=== PATIENT | female | born 1950 | race Caucasian/White ===

== ENCOUNTER 2019-03-28 09:01 | Outpatient (CLI) | payer MEDICARE, OTHER ==
[~2019-03-28] VITALS: Ht 157 cm; Wt 102.2 kg
[~2019-03-28 09:01] MED LIST: ALIS1TAB6 PO; CALC-80 PO; LEVO200T30 PO; PANT20TA2 PO; PGLT30T PO
[2019-03-28] MEDS ORDERED: LISI2.5T PO (09:15)
[2019-03-28] MEDS ORDERED: GABA800T10 PO (09:15)
[2019-03-28] MEDS ORDERED: LEVO150T6 PO (09:15)
[2019-03-28] MEDS ORDERED: VENL150C PO (09:15)
[2019-03-28 09:18] VITALS: BP 113/69
== END 2019-03-28 12:30 | disposition home or self-care (01) ==
LOC: PREOP 09:01
PROVIDERS: ATTEND Podiatrist Foot & Ankle Surgery
DX: Z01.818 Encounter for other preprocedural examination (principal)
CPT/HCPCS: 87081

== ENCOUNTER 2019-07-17 05:33 | Outpatient (CLI) | payer MEDICARE, OTHER ==
[~2019-07-17] VITALS: Ht 157 cm; Wt 102.2 kg
[~2019-07-17 05:33] MED LIST changes: +ACHD5005 PO; +CEPH500C PO; +GABA800T10 PO; +LEVO150T6 PO; +LISI2.5T PO; +VENL150C PO
[2019-07-17] MEDS ORDERED: LEVO175T5 PO (10:06)
== END 2019-07-17 10:22 | disposition home or self-care (01) ==
LOC: PREOP 05:33
PROVIDERS: ATTEND Podiatrist Foot & Ankle Surgery
DX: Z01.818 Encounter for other preprocedural examination (principal)

== ENCOUNTER 2019-07-24 07:56 | Day surgery (SDC) | payer MEDICARE, OTHER ==
[~2019-07-24] VITALS: Ht 157 cm; Wt 102.2 kg
[2019-07-24] VITALS (11 sets, daily range): BP systolic 128–165; BP diastolic 63–91
[~2019-07-24 07:56] MED LIST changes: +LEVO175T5 PO
[2019-07-24] MEDS: LACTATED RINGERS 1,000 ML IV PRN ×2 (08:27→09:49)
[2019-07-24] MEDS ORDERED: CATHETER FLUSH 10 ML SYR IV PRN (08:30)
[2019-07-24] MEDS ORDERED: ceFAZolin INJECTION 1,000 MG in WATER (STERILE) FOR INJECTION 10 ML IV ONE (08:30)
[2019-07-24] MEDS ORDERED: LIDOCAINE PF 2% 5 ML (XYLOCAINE) VIAL ONE (08:36)
[2019-07-24] MEDS ORDERED: proPOfol 200 MG/20 ML (DIPRIVAN) VIAL IV ONE (08:36)
[2019-07-24] MEDS ORDERED: MIDAZOLAM 2 MG/2 ML (VERSED) VIAL ONE (08:38)
[2019-07-24] MEDS ORDERED: fentaNYL INJECTION 100 MCG/2 ML AMP ONE (08:38)
[2019-07-24] MEDS ORDERED: SEVOFLURANE (ULTANE) 15 ML INHAL SOLN ONE ×9 (08:42→11:44)
--- NOTE | 2019-07-24 08:56 | Progress Note-Pre Operative ---
Pre-Operative Progress Note H&P Reviewed The H&P was reviewed, patient examined and no changes noted. Date Seen by Provider: Jul 24, 2019 Time Seen by Provider: 08:55 Date H&P Reviewed: Jul 24, 2019 Time H&P Reviewed: 08:55 Pre-Operative Diagnosis: Hallux Valgus, Hammertoe 2, 3, Hypertrophic 2nd metatarsal, left. HT 3 rt EVITA COBURN DPM Jul 24, 2019 08:56
[2019-07-24] MEDS ORDERED: BUPIVACAINE 0.5% 30 ML (SENSORCAINE) VIAL ONE (09:25)
[2019-07-24] MEDS ORDERED: DEXAMETHASONE 10 MG/ML (DECADRON) 1 ML VIAL ONE ×2 (11:32→11:46)
[2019-07-24] MEDS ORDERED: ONDANSETRON 4 MG/2 ML (SDV) Z0FRAN ONE (11:44)
[2019-07-24] MEDS ORDERED: LACTATED RINGERS 1,000 ML IV SCH (11:59)
--- NOTE | 2019-07-24 11:59 | Progress Note-Post Operative ---
Post-Operative Progess Note Surgeon (s)/Pot Runner (s) Surgeon EVITA COBURN DPM Pot Runner: none Pre-Operative Diagnosis Hallux Valgus, Hammertoe 2, 3, Hypertrophic 2nd metatarsal, left. HT 3 rt Post-Operative Diagnosis Same Procedure & Operative Findings Date of Procedure 07/24/19 Procedure Performed/Findings Patrice-Derrell bunionectomy, 2nd metatarsal osteotomy, reduction of hammertoes 2, 3, left foot. Flexor Tendon release 3rd toe, right foot. Anesthesia Type General Estimated Blood Loss Estimated blood loss (mL): Minimal Specimens/Packing Specimens Removed none EVITA COBURN DPM Jul 24, 2019 11:59
[2019-07-24] MEDS ORDERED: HYDROcodone/APAP 5 MG/325 MG (LORTAB) TAB PO PRN (12:00)
[2019-07-24] MEDS ORDERED: ACHD5005 PO (12:04)
[2019-07-24] MEDS ORDERED: CEPH500C PO (12:04)
--- NOTE | 2019-07-24 12:50 | Diagnostic Imaging Report ---
INDICATION: Osteotomy. FINDINGS: A single image was performed. Two seconds of fluoroscopy was utilized. There are post surgical changes in the 1st and 2nd metatarsals. IMPRESSION: Intraoperative fluoroscopy as described. Dictated by: Dictated on workstation # [id number]
--- NOTE | 2019-07-24 13:00 | Physical Therapy Progress Note ---
Therapy Progress Note PT in to consult with family on plan and patient equipment needs. Patient had surgery, right foot, March of last year. Patient has established equipment and family reports she will sit on 4WW and maneuver in home without difficulty. Patient is PWB left foot with surgical shoe. Family declined PT due to patient prior status and surgery history. No PT indicated. YENNIFER MCGEE PT Jul 24, 2019 13:00
--- NOTE | 2019-07-24 13:45 | Anesthesia-General Post-Op ---
General Patient Condition Mental Status/LOC: Same as Preop Cardiovascular: Satisfactory Nausea/Vomiting: Absent Respiratory: Satisfactory Pain: Controlled Complications: Absent Post Op Complications Complications None Follow Up Care/Instructions Patient Instructions None needed. Anesthesia/Patient Condition Patient Condition Patient is doing well, no complaints, stable vital signs, no apparent adverse anesthesia problems. No complications reported per nursing. DANIELLE MON CRNA Jul 24, 2019 13:45
--- NOTE | 2019-07-24 14:32 | Diagnostic Imaging Report ---
INDICATION: Postsurgical change. FINDINGS: There appear to be postsurgical changes of bunionectomy in the right foot. There is also a pin transfixing a hammertoe of the third toe. There are otherwise mild degenerative changes. In the left foot, there are pins in the second and third toes. There has also been a bunionectomy. There is a screw in the distal second metatarsal as well. IMPRESSION: Postsurgical changes in the feet bilaterally as described. Degenerative changes in both feet. Dictated by: Dictated on workstation # [id number]
--- NOTE | 2019-07-24 19:54 | OPERATIVE REPORT ---
DATE OF SERVICE: 07/24/2019 SURGEON: Dori Laboy DPM. PREOPERATIVE DIAGNOSES: 1. Hallux abductovalgus metatarsal primus varus, left. 2. Hammer digit syndrome, second and third digits, left foot. 3. Hypertrophic left second metatarsal head. 4. Hammer digit syndrome, right third toe. POSTOPERATIVE DIAGNOSES: 1. Hallux abductovalgus metatarsal primus varus, left. 2. Hammer digit syndrome, second and third digits, left foot. 3. Hypertrophic left second metatarsal head. 4. Hammer digit syndrome, right third toe. PROCEDURE: 1. Modified Patrice-Derrell bunionectomy, left foot. 2. Second metatarsal osteotomy, left foot. 3. Reduction of hammertoe, left second and third digits. 4. Flexor tendon release, right third toe. WOUND CLASS: Clean. ANESTHESIA: General. HEMOSTASIS: Pneumatic thigh tourniquet 300 mmHg on the left. INDICATIONS: This 68-year-old female presents complaining of painful left foot associated with the bunion and hammertoes. She is also complaining about a right third toe that is underlapping the second digit. Conservative therapy is met with unsatisfactory results and the patient is agreeable to surgical intervention after risks and complications were discussed at length. No guarantees were extended to the patient and she is willing to proceed. DESCRIPTION OF PROCEDURE: The patient was brought back to the operating table, placed in secure supine position. Appropriate timeout was performed. General anesthetic was then induced. A pneumatic thigh tourniquet was placed over the thigh bilaterally. Left foot was then anesthetized utilizing a local injection to the first, second and third rays utilizing 10 mL of 0.5% Marcaine plain. The feet were then prepped and draped in normal sterile manner. The left lower extremity was elevated, allowed to exsanguinate after which the tourniquet was inflated to 300 mmHg. Attention was then directed to the dorsal aspect of the left first metatarsophalangeal joint where a 6 cm longitudinal linear incision was created. The incision was deepened in the same plane with great care to identify and retract all vital neurovascular structures. Only the necessary blood vessels were cauterized as encountered. The incision was deepened down to the capsular tissue where a longitudinal capsulotomy was performed. This exposed the hypertrophic medial eminence to the first metatarsal head and the dorsal eminence to the first metatarsal head, which was resected utilizing power sagittal saw. Next, a Chevron-type osteotomy with Rosalie Martinez type modification was performed. This allowed for a longer angled plantar arm with a vertical dorsal portion of the osteotomy. This allowed the capital fragment to translocate laterally and was also able to correct the proximal articular set angle. The osteotomy was corrected and fixated utilizing a 0.062 threaded K-wire driven from dorsal proximal to plantar distal across the osteotomy with great care not to penetrate the articular cartilage. The K-wire was cut flush with the dorsal aspect of the first metatarsal. The head of the first metatarsal was further contoured and smoothed with a power bur. The wound was flushed once again. Attention was then directed to the proximal phalanx of the left hallux where a subperiosteal dissection was carried out to the diaphysis. Some of the previous monofilament wire was removed from the distal portion of the proximal phalanx. Next, an Derrell type procedure was performed. The proximal diaphysis was utilized for the transverse osteotomy. A wedge of bone was resected with the base medial and the lateral cortices held intact. The osteotomy was closed once the wedge was resected reducing the lateral deviation of the left hallux. Two agricultural aircraft pilot holes were created at the dorsal medial aspect of the osteotomy after which a 28-gauge monofilament wire was passed through the agricultural aircraft pilot hole securing the osteotomy in a closed position. Excellent bony apposition and fixation was appreciated at this time. The wound was flushed with copious amounts of normal saline and closure was then performed in layers for the first ray. Deep closure was performed with 3-0 Vicryl, superficial with 4-0 Vicryl, skin closure with 4-0 Prolene in a horizontal mattress type stitch. It should also be noted that a lateral release was performed prior to closure of a left bunionectomy. This included a release of the conjoint tendon of the adductor hallucis, a lateral capsulorrhaphy and release of the fibular sesamoidal ligament. Attention was then directed to the dorsal aspect of the second ray where an incision was created from the surgical neck of the second metatarsal to the distal interphalangeal joint. The incision was deepened in the same plane with great care to identify and retract all vital neurovascular structures, only necessary blood vessels were cauterized as encountered. The incision was deepened down to the extensor tendon where a Z slide lengthening was performed overlying the proximal phalanx. The extensor tendon was reflected proximally and extensor driscoll released. A dorsal capsulorrhaphy was performed. This exposed the hypertrophic head of the second metatarsal. Next, an oblique osteotomy was performed from dorsal to plantar. The osteotomy was oriented from distal medial to proximal lateral allowing the capital fragment to translocate laterally and proximally. It was fixated in its corrected position with a 2.0 snap-off screw of 14 mm of length driven from distal lateral to proximal medial, perpendicular to the osteotomy. Excellent bony apposition and fixation was appreciated at this time. Attention was then directed to the dorsal aspect of the left third digit, where an incision was created from the metatarsophalangeal joint to the distal interphalangeal joint. The incision was deepened in the same plane with great care to identify and retract all vital neurovascular structures. The incision was deepened down to the extensor tendon where a Z slide lengthening was performed. The extensor driscoll was released overlying the metatarsophalangeal joint. A dorsal capsulorrhaphy to the metatarsophalangeal joint was performed allowing the proximal phalanx to come down into more rectus alignment. The same procedure from here on out was performed on the 2nd and 3rd digit for the arthrodesis of the proximal interphalangeal joint, which included the following: The head of the proximal phalanx was fashioned into a peg utilizing a power bur power sagittal saw and power bur. Next, a power bur was utilized to create a hole in the base of the middle phalanx. This was for the peg-in-hole type arthrodesis. Next, a 0.054 K-wire was driven down the toe securing the arthrodesis site to the second and third digits in rectus alignment. The excess K wire was cut and a protective ball placed over the end of the wires. The wounds were flushed with copious amounts of normal saline throughout the procedure. Closure was then performed to the second and third rays utilizing 3-0 Vicryl for deep closure, 4-0 Vicryl for superficial closure and skin closure was performed with 4-0 Prolene in a horizontal mattress type stitch. Postoperative injection consisted of 10 mL of 0.5% Marcaine injected a local infusion to the surgical sites. Postoperative dressing consisted of Betadine soaked Adaptic, sterile 4 x 4, sterile Kerlix. The tourniquet was released noting appropriate cap refill time to all digits of the left foot. Attention was then directed to the right third digit where a flexible contracture was noted at the distal interphalangeal joint. Utilizing a #11 blade, a stab incision was created to the plantar aspect of the right third digit. The tip of the blade was palpated at the flexor tendons and the distal phalanx was extended dorsally where once the flexor tendon was released, a more rectus alignment of the distal phalanx was appreciated. The wound was flushed with copious amounts of normal saline. Postoperative injection consisted of 4 mL of 0.5% Marcaine injected a local infusion to the right third digit. Postoperative dressing consisted of Betadine soaked Adaptic, sterile 4 x 4s prior to closure; however, a 0.045 K-wire was driven down the digit holding the digit in rectus alignment. A protective ball was placed over the end of the wire. Betadine soaked Adaptic was also placed over the end of the K-wire protecting the distal aspect of the digit. Once the dressing was secured with Kerlix, both feet were then finished with Coban. The patient tolerated the anesthesia and procedure well, was transported from the operating room to the recovery area with vital signs stable and vascular status intact to all digits both feet. Postoperative instructions were given to the patient to be full weightbearing on the right and partial weightbearing on the left with a walker and surgical splint shoes. She is to have minimal ambulation and to the dinner table or to the restroom. Otherwise, she is to be icing and elevating. She was given a prescription for hydrocodone, for which she has had previous intolerance for GI issues including constipation. She will take them only as necessary. We will supplement with anti-inflammatory such as ibuprofen. The patient is followed by my office in 10 days' period of time or sooner if necessary. Job ID: [id number] DocumentID: [id number] Dictated Date: 07/24/2019 12:19:48 Assistant Program Director Date: 07/24/2019 19:52:56 Dictated By: BENNETT ZAYAS
== END 2019-07-24 13:55 | disposition home or self-care (01) ==
LOC: SDC 07:56
PROVIDERS: ATTEND Podiatrist Foot & Ankle Surgery
DX: M20.12 Hallux valgus (acquired), left foot (principal); M20.42 Other hammer toe(s) (acquired), left foot; M89.372 Hypertrophy of bone, left ankle and foot; M20.41 Other hammer toe(s) (acquired), right foot; I10 Essential (primary) hypertension; E66.01 Morbid (severe) obesity due to excess calories; F32.9 Major depressive disorder, single episode, unspecified; Z68.41 Body mass index [BMI] 40.0-44.9, adult; Z88.5 Allergy status to narcotic agent; Z88.8 Allergy status to other drugs, medicaments and biological substances; Z79.899 Other long term (current) drug therapy
CPT/HCPCS: 87081

== ENCOUNTER 2021-02-20 05:43 | Outpatient (CLI) | payer MEDICARE, OTHER ==
[~2021-02-20] VITALS: Ht 157.5 cm; Wt 106.8 kg
[2021-02-20] MEDS ORDERED: PANT40SU PO (13:11)
[2021-02-20] MEDS ORDERED: CELE100C PO (13:11)
== END 2021-02-20 14:05 ==
LOC: PREOP 05:43
PROVIDERS: ATTEND Orthopaedic Surgery
DX: Z01.818 Encounter for other preprocedural examination (principal)

== ENCOUNTER 2021-02-26 06:33 | Day surgery (SDC) | payer MEDICARE, OTHER ==
--- NOTE | 2021-02-19 14:39 | HISTORY AND PHYSICAL ---
DATE OF SERVICE: ADMISSION HISTORY AND PHYSICAL DATE OF ADMISSION: 02/26/2021. This will be for outpatient surgery on 02/26/2021 for right knee arthroscopy. HISTORY OF PRESENT ILLNESS: The patient is a 70-year-old female with complaints of right knee pain. She has undergone treatment with injections and anti-inflammatories without relief. Ultimately, she underwent an MRI, which revealed evidence of medial and lateral meniscal tears as well as diffuse chondromalacia. She reports, initially, the injection helped; however, she began experiencing increasing pain with catching, locking and because of this, she has elected to proceed with surgical intervention. REVIEW OF SYSTEMS: No chest pain, no shortness of breath, and no dysuria. PAST MEDICAL HISTORY: Diabetes, hypertension, and shingles. PAST SURGICAL HISTORY: Thyroidectomy, bilateral knee arthroscopy, hysterectomy, and gastric sleeve. FAMILY HISTORY: Significant for seizure disorder, brain tumors, cardiovascular disease, COPD, stroke and neuropathy. PRIMARY CARE PROVIDER: Frances Cotton. MEDICATIONS: Synthroid, Bumex, and gabapentin. ALLERGIES: No known drug allergies. SOCIAL HISTORY: The patient denies alcohol and tobacco use. PHYSICAL EXAMINATION: GENERAL: The patient is well-developed, well-nourished, in no acute distress. HEENT: Normocephalic and atraumatic. Pupils are equal, round and reactive to light. Oropharynx is clear. NECK: Supple with no lymphadenopathy. LUNGS: Clear to auscultation bilaterally. HEART: Regular rate and rhythm. ABDOMEN: Soft, nontender, and nondistended. EXTREMITIES: The right knee demonstrates moderate effusions. She is tender along the medial and lateral joint line. She has pain medially and laterally with Mohit's. No varus or valgus laxity. Negative anterior and posterior drawer. She ambulates with an antalgic gait. IMPRESSION: Right knee medial and lateral meniscal tears with associated chondromalacia. PLAN: Right knee arthroscopy with partial meniscectomies and chondroplasty. The risks, benefits, options, ramifications and recovery have been discussed at length with the patient. She understands and wishes to proceed. Job ID: [id number] DocumentID: [id number] Dictated Date: 02/19/2021 14:19:[address] Date: 02/19/2021 14:39:11 Dictated By: IVORY ALBRIGHT MD
[2021-02-26] VITALS (11 sets, daily range): BP systolic 110–168; BP diastolic 58–84
[~2021-02-26] VITALS: Ht 157.5 cm; Wt 106.8 kg
[~2021-02-26 06:33] MED LIST changes: +CELE100C PO; +PANT40SU PO
[2021-02-26] MEDS ORDERED: ceFAZolin INJECTION 1,000 MG in WATER (STERILE) FOR INJECTION 10 ML IV ONE (06:45)
[2021-02-26] MEDS ORDERED: LACTATED RINGERS 1,000 ML IV PRN (06:45)
[2021-02-26] MEDS ORDERED: BUPIVACAINE 0.25% 30 ML (SENSORCAINE) VIAL ONE (07:04)
[2021-02-26] MEDS ORDERED: morphine PF (DURAMORPH) 10 MG/10 ML AMP ONE (07:04)
[2021-02-26] MEDS ORDERED: HYDROcodone/APAP 7.5 MG/325 MG (LORTAB, LORCET PLUS) TABLET PO PRN (07:30)
[2021-02-26] MEDS ORDERED: proPOfol 200 MG/20 ML (DIPRIVAN) VIAL IV ONE (07:30)
[2021-02-26] MEDS ORDERED: ONDANSETRON 4 MG/2 ML (SDV) Z0FRAN ONE (07:30)
[2021-02-26] MEDS ORDERED: SEVOFLURANE (ULTANE) 15 ML INHAL SOLN ONE (07:30)
[2021-02-26] MEDS ORDERED: LIDOCAINE PF 2% 5 ML (XYLOCAINE) VIAL ONE (07:30)
[2021-02-26] MEDS ORDERED: fentaNYL INJ 100 MCG/2 ML AMP ONE (07:31)
[2021-02-26] MEDS ORDERED: MIDAZOLAM 2 MG/2 ML (VERSED) VIAL ONE (07:31)
--- NOTE | 2021-02-26 07:36 | Progress Note-Pre Operative ---
Pre-Operative Progress Note H&P Reviewed The H&P was reviewed, patient examined and no changes noted. Date Seen by Provider: Feb 26, 2021 Time Seen by Provider: 07:25 Date H&P Reviewed: Feb 26, 2021 Time H&P Reviewed: 07:11 Pre-Operative Diagnosis: right knee medial meniscus tear and chondromalacia IVORY ALBRIGHT MD Feb 26, 2021 07:36
--- NOTE | 2021-02-26 07:37 | Progress Note-Post Operative ---
Post-Operative Progess Note Surgeon (s)/Water Purifier Operator (s) Surgeon IVORY ALBRIGHT MD Water Purifier Operator: Julio Lopez Pre-Operative Diagnosis right knee medial meniscus tear and chondromalacia Post-Operative Diagnosis right knee medial and lateral meniscus tears and chondromalacia of the medial femoral condyle and patella Procedure & Operative Findings Date of Procedure 02/26/21 Procedure Performed/Findings right knee arthroscopic partial medial and lateral meniscectomies and chondropl asty of medial femoral condyle and patella Anesthesia Type GETA Estimated Blood Loss Estimated blood loss (mL): minimal Specimens/Packing Specimens Removed none Packing: none IVORY ALBRIGHT MD Feb 26, 2021 07:37
--- NOTE | 2021-02-26 12:47 | OPERATIVE REPORT ---
DATE OF SERVICE: 02/26/2021 PREOPERATIVE DIAGNOSES: 1. Right knee medial meniscus tear. 2. Right knee chondromalacia of the medial femoral condyle. POSTOPERATIVE DIAGNOSES: 1. Left knee medial meniscus tear. 2. Right knee chondromalacia. 3. Right knee lateral meniscus tear. 4. Right knee chondromalacia of the patella. PROCEDURES PERFORMED: 1. Right knee arthroscopic partial medial meniscectomy. 2. Right knee arthroscopic partial lateral meniscectomy. 3. Right knee arthroscopic chondroplasty of the medial femoral condyle. 4. Right knee arthroscopic chondroplasty of the patella. SURGEON: Raghu Albright MD. REGISTRATION COORDINATOR: Julio Lopez, who assisted throughout the procedure and closed the incisions. ANESTHESIA: General endotracheal by Radha Trotter CRNA. TOURNIQUET TIME: Nonfocal. ESTIMATED BLOOD LOSS: Minimal. DRAINS: None. COMPLICATIONS: None. POSTOPERATIVE PLAN: Routine arthroscopy protocol. The patient was transferred to the recovery room awake and in stable condition. STATEMENT OF MEDICAL NECESSITY: The patient is a 70-year-old female with complaints of right medial knee pain, catching, locking and swelling. She underwent an MRI, which revealed a medial meniscus tear as well as chondral changes in her medial compartment. She had tried rest, activity modifications as well as injections without relief. Due to functional impairment and failure to improve with conservative measures, the patient elected to proceed with surgical intervention. Examination under anesthesia revealed range of motion of 0/0/120 with negative Kalee, negative anterior and posterior drawer. No varus or valgus laxity and negative pivot shift. ARTHROSCOPIC FINDINGS: The patella demonstrated grade II chondral flap centrally in a 10 x 10 area. The trochlea demonstrated no significant chondral abnormalities. The medial and lateral gutters were clear. The ACL and PCL were intact. The lateral compartment demonstrated grade IV chondral loss diffusely over the tibial plateau with chondral softening on the femoral condyle. The lateral meniscus demonstrated a flap tear of the body involving approximately 20% of the body. The medial compartment demonstrated grade II chondral flap centrally over the femoral condyle in a 15 x 15 area with a horizontal cleavage tear of the posterior horn and body of the medial meniscus involving approximately one-half of the posterior horn and body. DESCRIPTION OF PROCEDURE: After the risks and benefits of the procedure were discussed and questions were answered, an informed consent was signed and placed on the chart. The operative site was confirmed in the preoperative holding area initialed by the surgeon. The patient was then transferred to the operating room and after adequate levels of general endotracheal anesthetic were obtained, a timeout was called, confirming the operative site. Examination under anesthesia was performed with the above findings noted. The right lower extremity was prepped and draped in the usual sterile fashion. Knee joint was injected with 60 mL fluid and standard inferolateral portal was placed for the arthroscope under direct visualization, inferior medial portal was created. The menisci and cruciates were carefully probed with the above findings noted. The unstable chondral flaps in the patella were debrided with a shaver back to a stable edge. The scope was then redirected into the lateral compartment where the lateral meniscus tear was debrided with a shaver back to a stable edge. This was carefully probed with no further tearing or instability noted. The scope was then redirected into the medial compartment, where the unstable chondral flaps in the medial femoral condyle were debrided with shaver back to a stable edge and the posterior horn and body of the medial meniscus were debrided with a biter and a shaver back to a stable edge. This was carefully probed with no further tearing or instability noted. The knee was copiously irrigated. The portal sites were closed with 4-0 nylon in a simple interrupted fashion. Knee was injected with Duramorph. The port sites were infiltrated with plain Marcaine. A soft dressing was applied. The patient was transferred to the recovery room awake and in stable condition. Job ID: [id number] DocumentID: [id number] Dictated Date: 02/26/2021 09:09:23 Custom Tailor Apprentice Date: 02/26/2021 12:46:13 Dictated By: RAGHU ALBRIGHT MD
--- NOTE | 2021-02-26 13:23 | Physical Therapy Ortho Eval ---
PT Orthopedic Evaluation Type of Surgery Knee Scope Prior Level of Function Current Living Status: Significant Other Locomotion (Upon Admit): Independent Established Durable Medical Eq: Front Wheeled Walker, Straight Cane Subjective Entry Into Home: Stairs With Railing Steps Into Home: 5 Motor Control Motor Control: Motor Control WNL ROM ROM: WFL, except focal deficit Strength Strength: WFL Transfer SCALE: Activities may be completed with or without assistive devices. 0-Ladgrygixm-nbyuyrl completes the activity by him/herself with no assistance from a helper. 5-Set-up or Clean-up Assistance-helper sets up or cleans up; patient completes activity. [place] assists only prior to or following the activity. 4-Supervision or Touching Assistance-helper provides verbal cues and/or touching/steadying and/or contact guard assistance as patient completes activity. Assistance may be provided throughout the activity or intermittently. 3-Partial/Moderate Assistance-helper does LESS THAN HALF the effort. [place] lifts, holds or supports trunk or limbs, but provides less than half the effort. 2-Substantial/Maximal Assistance-helper does MORE THAN HALF the effort. [place] lifts or holds trunk or limbs and provides more than half the effort. 1-Tdecclqqz-kebjhk does ALL the effort. Patient does none of the effort to complete the activity. Or, the assistance of 2 or more helpers is required for the patient to complete the activity. If activity was not attempted, code reason: 7-Patient Refused. 9-Not Applicable-not attempted and the patient did not perform the activity before the current illness, exacerbation or injury. 10-Not Attempted due to Environmental Limitations-(lack of equipment, weather restraints, etc.). 88-Not Attempted due to Medical Conditions or Safety Concerns. Transfers (B, C, W/C) (QC): 4 Gait Gait Assistive Device: FWW Right Lower Extremity: Right Weight Bearing Status RLE: Weight Bearing/Tolerated Gait (QC): 4 Distance (QC): 1=up to 49 ft Distance: 30 Gait Level of Assist: 4 Treatment Rendered Treatment: Therapeutic Exercises, Gait Train, Issued Written HEP Assessment/Goals Goal Time Frame: 1 Visit Understands HEP: Yes Safe Ambulation: Yes Plan Treatment Plan: Bed Mobility, Discharge, Education, Functional Activity Tolerated, Functional Strength, Gait, Safety, Therapeutic Exercise, Transfers Time Time In: 1106 Time Out: 1126 Total Billed Treatment Time: 20 Billed Treatment Time Visit, Lesa Be JOHN A PT Feb 26, 2021 13:23
--- NOTE | 2021-02-26 13:32 | Anesthesia-General Post-Op ---
General Patient Condition Mental Status/LOC: Same as Preop Cardiovascular: Satisfactory Nausea/Vomiting: Absent Respiratory: Satisfactory Pain: Controlled Complications: Absent Post Op Complications Complications None Follow Up Care/Instructions Patient Instructions None needed. Anesthesia/Patient Condition Patient Condition Patient is doing well, no complaints, stable vital signs, no apparent adverse anesthesia problems. No complications reported per nursing. BERNARDO MARTINEZ CRNA Feb 26, 2021 13:32
== END 2021-02-26 11:22 | disposition home or self-care (01) ==
LOC: SDC 06:33
PROVIDERS: ATTEND Orthopaedic Surgery
DX: S83.241A Other tear of medial meniscus, current injury, right knee, initial encounter (principal); S83.281A Other tear of lateral meniscus, current injury, right knee, initial encounter; M22.41 Chondromalacia patellae, right knee; I10 Essential (primary) hypertension; M19.90 Unspecified osteoarthritis, unspecified site; F32.9 Major depressive disorder, single episode, unspecified; E66.9 Obesity, unspecified; E11.9 Type 2 diabetes mellitus without complications; Z79.899 Other long term (current) drug therapy; Z68.41 Body mass index [BMI] 40.0-44.9, adult; Z98.890 Other specified postprocedural states
CPT/HCPCS: 87081